=== PATIENT | male | born 1950 | race Caucasian/White ===

== ENCOUNTER → 2016-05-23 | Outpatient (CLI) | payer MEDICARE, MEDICAID ==
[~2016-05-23] MED LIST: ALPR0.5T PO; ASPI-498 OR; ATE50T OR; ATEN50TA PO; Atorvastatin Calcium PO; DIG025T OR; DIGO0.2570 PO; NITRSPR10 TL; NOR7.5T PO
== END | disposition home or self-care (01) ==
LOC: Rad HDHVI 08:56
PROVIDERS: ATTEND Internal Medicine Cardiovascular Disease
DX: I10 Essential (primary) hypertension (principal); I48.2 Chronic atrial fibrillation
CPT/HCPCS: 93306

== ENCOUNTER → 2016-06-24 | Outpatient (CLI) | payer MEDICARE, MEDICAID ==
[2016-06-24 13:03] LABS: BUN/Creatinine Ratio 7.3; Calcium 9.8 mg/dL (8.5-10.1); Potassium 4.3 mmol/L (3.5-5.1)
[2016-06-24 13:27] LABS: Temperature: 23.1 C (20.0-25.0)
== END | disposition home or self-care (01) ==
LOC: LAB 10:14
PROVIDERS: ATTEND Internal Medicine Cardiovascular Disease
DX: I10 Essential (primary) hypertension (principal); I50.9 Heart failure, unspecified; Z79.899 Other long term (current) drug therapy
CPT/HCPCS: 36415; 80048; 83880

== ENCOUNTER 2019-06-26 16:22 | Inpatient (IN) | payer MEDICAID, MEDICARE ==
[~2019-06-26] VITALS: Ht 170.2 cm; Wt 86.1 kg
[~2019-06-26 16:22] MED LIST changes: +NITR1SPR TL; -NITRSPR10 TL
[2019-06-26] MEDS ORDERED: SODIUM CHLORIDE 0.9% 1,000 ML IV ONE (16:57)
[2019-06-26] MEDS ORDERED: dilTIAZem 25 MG/5 ML VIAL IV ONE (17:00)
[2019-06-26] MEDS ORDERED: MORPHINE SULFATE 4 MG/ML SYR/VIAL IV PRN (17:00)
[2019-06-26] MEDS: MORPHINE SULF INJ 2 MG/ML SYRINGE 1ML IV PRN ×2 (17:38→21:38)
[2019-06-26 17:48] LABS: Basophils # (auto) 0.1 10 ^3/uL (0-0.2); Basophils % (auto) 0.8 % (0.0-2.0); Eosinophils # (auto) 0.1 10 ^3/uL (0-0.8); Eosinophils % (auto) 1.7 % (0.0-7.0); Lymphocytes # (auto) 2.7 10 ^3/uL (0.4-5.4); Lymphocytes % (auto) 31.6 % (10.0-50.0); Mean Corpuscular Hemoglobin 31.5 pg (28.0-32.0); Mean Corpuscular Hgb Conc. 33.3 g/dL (32.0-36.0); Mean Corpuscular Volume 94.7 fL (80.0-100.0); Monocytes # (auto) 0.8 10 ^3/uL (0-1.3); Monocytes % (auto) 9.1 % (0.0-12.0); Neutrophils # (auto) 4.8 10 ^3/uL (1.6-8.6); Neutrophils % (auto) 56.8 % (37.0-80.0); Nucleated Red Blood Cells % 0.2 %; Platelet Count (auto) 223 10^3/uL (140-450); Red Blood Cells 4.75 10^6/uL (4.5-5.90); Red Cell Distribution Width 13.5 % (11.8-14.3); White Blood Cell 8.5 10^3/uL (4.4-10.8)
[2019-06-26 17:58] LABS: Alanine Aminotransferase 23 U/L (16-61); Albumin 3.5 g/dL (3.4-5.0); Anion Gap 8 (5-15); Aspartate Aminotransferase 16 U/L (15-37); BUN/Creatinine Ratio 15.1; Blood Urea Nitrogen 18 mg/dL (7-18); Calcium 8.7 mg/dL (8.5-10.1); Carbon Dioxide 21 mmol/L (21-32); Chloride 110 mmol/L (98-107); GFR African American 78 mL/min; GFR Non-African American 65 mL/min; Glucose 98 mg/dL (74-106); Potassium 3.3 mmol/L (3.5-5.1); Sodium 139 mmol/L (136-145)
[2019-06-26 18:03] LABS: Alkaline Phosphatase 73 U/L (45-117); Bilirubin, Total 0.3 mg/dL (0.2-1.0)
[2019-06-26 18:12] LABS: INR 1.02 (0.9-1.15); Partial Thromboplastin Time 27.3 sec (23.64-32.05)
[2019-06-26] MEDS ORDERED: POTASSIUM EFFERVESENT TAB 25 MEQ PO ONE (18:45)
[2019-06-26] MEDS ORDERED: TEMAZEPAM 15 MG CAP PO PRN (19:15)
[2019-06-26] MEDS ORDERED: NITROGLYCERIN 0.4 MG SL TAB SL PRN (19:15)
[2019-06-26] MEDS ORDERED: ACETAMINOPHEN 500 MG TAB PO PRN (19:15)
[2019-06-26] MEDS ORDERED: METOPROLOL TARTRATE 25 MG TAB PO ONE (19:15)
[2019-06-26] MEDS ORDERED: ALBUTEROL SULF 2.5 MG/0.5ML(0.5%) NEB SOLN NEB PRN (19:15)
[2019-06-26] MEDS ORDERED: MORPHINE SULF INJ 2 MG/ML SYRINGE 1ML IV PRN (19:15)
[2019-06-26] MEDS ORDERED: traMADol HCL 50 MG TAB PO PRN (19:15)
[2019-06-26] MEDS ORDERED: LACTULOSE 20Gm/30ML SOLN PO PRN ×2 (19:15)
[2019-06-26] MEDS ORDERED: PROMETHAZINE HCL 25 MG/ML 1ML IV PRN (19:15)
--- NOTE | 2019-06-26 20:00 | NUR ---
Telemetry admit from SADIQ JERNIGAN Justo admitted to Telemetry unit after SBAR received. Patient oriented to Charley Stevens RN primary RN, unit, room, bed, and unit policies regarding patient care and visiting hours. Patient now on continuous telemetry monitoring, tele box # 54. Patient placed on bedside oxygen at 2 liters, weighed by bedscale and encouraged to call if they need something. All questions and concerns addressed, patient verbalized understanding. Bed is in lowest locked position with bed rails up x2 and call light is within reach of the patient.
[2019-06-26] MEDS ORDERED: FLUT1INH6 IN (21:06)
[2019-06-26] MEDS ORDERED: DIGO0.12 PO (21:06)
[2019-06-26] MEDS ORDERED: RIV20T PO (21:06)
[2019-06-26] MEDS ORDERED: OMEG100078 PO (21:10)
[2019-06-26] MEDS ORDERED: FURO40TA4 PO (21:10)
[2019-06-26] MEDS ORDERED: DILT60TA27 PO (21:10)
[2019-06-26] MEDS ORDERED: DILT240C49 PO (21:10)
[2019-06-26] MEDS ORDERED: HYDR50TA69 PO (21:10)
[2019-06-26] MEDS ORDERED: POTACAP PO (21:10)
[2019-06-26] MEDS ORDERED: HYDR-3682 PO (21:10)
[2019-06-26] MEDS ORDERED: MULTCAP45 PO (21:10)
[2019-06-26 21:36] VITALS: BP 121/76
[2019-06-26] MEDS: METOPROLOL TARTRATE 25 MG TAB PO SCH (21:39)
[2019-06-26] MEDS: ENOXAPARIN SOD 80 MG/0.8ML SYRINGE SC SCH (21:48)
[2019-06-26 22:00] VITALS: BP 130/80
[2019-06-27] MEDS: ALBUTEROL SULF 2.5 MG/0.5ML(0.5%) NEB SOLN NEB SCH ×4 (00:50→19:06)
[2019-06-27] MEDS: IPRATROPIUM BROM 0.5 MG/2.5ML INH SOL NEB SCH ×4 (00:50→19:06)
[2019-06-27] MEDS: MORPHINE SULF INJ 2 MG/ML SYRINGE 1ML IV PRN ×5 (01:39→19:56)
[2019-06-27 04:38] LABS: Amphetamine Screen, Urine NEGATIVE (NEGATIVE); Barbiturate Scree,Urine NEGATIVE (NEGATIVE); Benzodiazephine Screen, Urine NEGATIVE (NEGATIVE); Cannabinoid Screen, Urine NEGATIVE (NEGATIVE); Cocaine Screen, Urine NEGATIVE (NEGATIVE); Opiate Scree,Urine POSITIVE (NEGATIVE); Phencyclidine Screen, Urine NEGATIVE (NEGATIVE)
[2019-06-27 04:59] VITALS: BP 117/78
--- NOTE | 2019-06-27 06:15 | NUR ---
EKG obtained and placed in chart. Patient tolerated well.
[2019-06-27 08:22] VITALS: BP 116/72
[2019-06-27 08:46] VITALS: BP 116/72
[2019-06-27] MEDS: ASPirin 81 mg TAB PO SCH (09:05)
[2019-06-27] MEDS: METOPROLOL TARTRATE 25 MG TAB PO SCH (09:05)
[2019-06-27] MEDS: ENOXAPARIN SOD 80 MG/0.8ML SYRINGE SC SCH (09:06)
[2019-06-27] MEDS: NITROGLYCERIN 0.2MG/HR TOPICAL PATCH TD SCH (09:12)
[2019-06-27 12:34] VITALS: BP 121/71
[2019-06-27] MEDS ORDERED: DIGOXIN 0.125 MG TAB PO ONE (12:45)
[2019-06-27] MEDS ORDERED: FUROSEMIDE 40 MG/4 ML VIAL IV ONE (12:45)
[2019-06-27 13:08] LABS: Cholesterol 164 mg/dL (< 200)
[2019-06-27 13:11] LABS: HDL Cholesterol 61 mg/dL (40-59); LDL Cholesterol 90 mg/dL (< 100); Triglycerides 88 mg/dL (< 150)
[2019-06-27] MEDS: METOPROLOL TARTRATE 25 MG TAB PO ONE ×2 (14:45→15:12)
[2019-06-27] MEDS ORDERED: METOPROLOL TARTRATE 1MG/1ML-5ML VIAL IV SCH (14:45)
[2019-06-27] MEDS ORDERED: FURO40TA4 PO (15:03)
[2019-06-27] MEDS ORDERED: DILT240C49 PO (15:03)
[2019-06-27] MEDS ORDERED: DILT-29 PO (15:03)
[2019-06-27] MEDS ORDERED: FLUT100I IN (15:03)
[2019-06-27 17:18] VITALS: BP 119/79
[2019-06-27] MEDS: FUROSEMIDE 100 MG/10ML VIAL IV SCH (17:35)
[2019-06-27] MEDS: RIVAROXABAN 20 MG TAB PO SCH (17:38)
[2019-06-27] MEDS ORDERED: FUROSEMIDE 40 MG/4 ML VIAL IV SCH (18:00)
--- NOTE | 2019-06-27 19:11 | NUR ---
Respiratory note: AT BEDSIDE FOR MED HANNAH ARCE.
--- NOTE | 2019-06-27 19:13 | NUR ---
Respiratory note: DURING TX, PT STATES HE IS HAVING A HARD TIME BREATHING. PT STATES THE MOISTURE OF THESE TREATMENTS DO NOT HELP WITH HIS CHF AND BELIEVES THAT IS WHY HE HAS A HARD TIME BREATHING WITH TREATMENT. PT ALSO STATES HE IS NOT SURE HE WILL TAKE THE NEXT TREATMENT. EXPLAINED TO PT BENEFITS OF TX PT STILL REFUSING. RT NAME AND PAGER ASSIGNMENT WRITTEN ON PTS ROOM BOARD. WILL CONTINUE TO MONITOR. Addendum: 06/27/19 at 2001 by Drea Best, RT TX WAS STOPPED DUE TO PTS COMPLAINTS.
--- NOTE | 2019-06-27 19:45 | NUR ---
Opening Shift Note Assumed care of patient, awake and alert oriented x4. No S/S of distress/SOB noted. Instructed on POC and to call for assist PRN. Bed is in lowest locked position with bed rails up x2 and call light is within reach of the patient. Seizure precautions in place, bed rails padded. Instructed that patient will be NPO after midnight for procedures. Patient verbalized understanding.
[2019-06-27 22:00] VITALS: BP 120/85
[2019-06-27] MEDS: METOPROLOL TARTRATE 50 MG TAB PO SCH (22:01)
[2019-06-27] MEDS: POTASSIUM CHL 20 Meq TABLET PO SCH (22:01)
[2019-06-27] MEDS: ATORVASTATIN 20 MG TAB PO SCH (22:03)
--- NOTE | 2019-06-27 23:00 | NUR ---
Hospitalist paged: Patient had complaints of generalized itching all over and is requesting something for the itching. Paged hospitalist at this time for patients itching. Waiting for call back.
[2019-06-28] VITALS (7 sets, daily range): BP systolic 102–117; BP diastolic 63–76
--- NOTE | 2019-06-28 | NUR ---
Patient NPO, Itching resolved: Patient verbalized "The itching went away now." Patient no longer has generalized itching, patient now NPO for procedure in the AM.
[2019-06-28] MEDS: MORPHINE SULF INJ 2 MG/ML SYRINGE 1ML IV PRN ×5 (00:01→20:33)
--- NOTE | 2019-06-28 00:22 | NUR ---
Respiratory note: PT REFUSING MED NEB TX AT THIS TIME.
[2019-06-28] MEDS: FUROSEMIDE 100 MG/10ML VIAL IV SCH ×2 (05:43→17:29)
--- NOTE | 2019-06-28 06:15 | NUR ---
IV insertion IV access obtained, via clean sterile technique by inserting 20 gauge catheter at right forearm. IV secured properly. No trauma to site. Patient tolerated well. No S/S of distress SOB noted. Both IV's flushed and are patent for procedure.
[2019-06-28] MEDS: IPRATROPIUM BROM 0.5 MG/2.5ML INH SOL NEB SCH ×4 (06:40→18:00)
[2019-06-28] MEDS: ALBUTEROL SULF 2.5 MG/0.5ML(0.5%) NEB SOLN NEB SCH ×4 (06:40→18:00)
[2019-06-28] MEDS ORDERED: ADENOSINE 71 MG in GIVE UN-DILUTED 0 ML IV STA (08:22)
[2019-06-28] MEDS: NITROGLYCERIN 0.2MG/HR TOPICAL PATCH TD SCH (10:00)
[2019-06-28] MEDS: ASPirin 81 mg TAB PO SCH (10:35)
[2019-06-28] MEDS: POTASSIUM CHL 20 Meq TABLET PO SCH ×2 (10:39→22:05)
[2019-06-28] MEDS: dilTIAZem 120MG ER CAP PO SCH (10:39)
[2019-06-28] MEDS: METOPROLOL TARTRATE 50 MG TAB PO SCH ×2 (10:40→22:05)
[2019-06-28] MEDS: DIGOXIN 0.125 MG TAB PO SCH (10:40)
--- NOTE | 2019-06-28 10:56 | NUR ---
FYI-patient was previously on service with [facility].
--- NOTE | 2019-06-28 12:00 | NUR ---
Respiratory note: SCHEDULED MED NEB TX NOT GIVEN DUE TO PATIENT REFUSAL. PT STATED THE BREATHING TX CAUSES HIM TO COUGH FOR TWO HOURS STRAIGHT AND WANTS TO WAIT UNTIL MD COMES IN TO SEE HIM. EXPLAINED TO PT BENEFITS OF TAKING MED, PT CONTINUED TO REFUSE. NO S/S OF RESPIRATORY DISTRESS.
[2019-06-28] MEDS: GABAPENTIN 300 MG CAP PO SCH ×2 (14:30→22:05)
--- NOTE | 2019-06-28 16:50 | NUR ---
assessment re: ss consult unable to afford medications Patient is a 69 year old male who is alert and oriented. Patients cognitive abilities are intact. Prior to admission patient lived home alone and functioned independently. Patient informed me he is able to care for his own ADLs. Per patient he will return home to his prior living arrangements post discharge and family will transport him home. Patient informed me he has a cane for home use. Patient informed me he is on service with [employer]. Patient will need a resumption order on discharge. Patient also informed me one of his medications copay is 400.00 per month. I informed patient to speak with the MD regarding changing the one medicare to generic, then patient said he would be able to afford all his meds. Dulce Chapa to see patient regarding PCP. Patient only see's his Analytics Manager Dr Harmon. I informed patient he has a right to speak to a high school social studies tutor regarding all care. I informed patient he has a right to participate in any and all discharge planning. Patient does not have a POA and advanced directive. I have offered patient information on POA and advanced directives. I informed the patient the advantages and benefits of having an Advanced Directive. Patient verbalized understanding and agreed to discharge plan. Addendum: 06/28/19 at 1655 by Dulce BENAVIDES Amended: Links added.
[2019-06-28] MEDS: RIVAROXABAN 20 MG TAB PO SCH (17:30)
--- NOTE | 2019-06-28 19:47 | NUR ---
Opening Shift Note Assumed care of patient after receiving report from becca Qiu RN. Introduced self to patient, awake and alert, resting in bed comfortably. No S/S of distress/SOB or pain. Bed in lowest position x2 side rails up. Instructed on POC and to call for assist PRN, will continue to monitor for changes Q1hr and PRN.
--- NOTE | 2019-06-28 21:14 | NUR ---
IV removal Right forearm IV DC'd with clean sterile technique, catheter fully intact. Pressure dressing applied to site. Patient tolerated well.
[2019-06-28] MEDS: ATORVASTATIN 20 MG TAB PO SCH (22:06)
--- NOTE | 2019-06-28 22:15 | NUR ---
RT paged Patient complains of SOB with audible expiratory wheezing. Placed on 2L through NC, paged RT for PRN breathing treatment. Will continue to monitor.
[2019-06-29] VITALS (7 sets, daily range): BP systolic 104–117; BP diastolic 58–91
[2019-06-29] MEDS: ALBUTEROL SULF 2.5 MG/0.5ML(0.5%) NEB SOLN NEB SCH ×4 (00:41→19:25)
[2019-06-29] MEDS: IPRATROPIUM BROM 0.5 MG/2.5ML INH SOL NEB SCH ×4 (00:41→19:25)
[2019-06-29] MEDS: MORPHINE SULF INJ 2 MG/ML SYRINGE 1ML IV PRN ×5 (00:43→19:47)
[2019-06-29] MEDS: GABAPENTIN 300 MG CAP PO SCH ×3 (05:34→21:40)
[2019-06-29] MEDS: FUROSEMIDE 100 MG/10ML VIAL IV SCH ×2 (05:35→18:58)
[2019-06-29] MEDS ORDERED: IOHEXOL 350 MG/ML 100ML IJ ONE (08:09)
[2019-06-29] MEDS: METOPROLOL TARTRATE 50 MG TAB PO SCH ×2 (08:15→21:46)
[2019-06-29] MEDS: NITROGLYCERIN 0.2MG/HR TOPICAL PATCH TD SCH (08:16)
[2019-06-29] MEDS: ASPirin 81 mg TAB PO SCH (09:27)
[2019-06-29] MEDS: POTASSIUM CHL 20 Meq TABLET PO SCH ×2 (09:28→21:39)
[2019-06-29] MEDS: dilTIAZem 120MG ER CAP PO SCH (09:28)
[2019-06-29] MEDS: DIGOXIN 0.125 MG TAB PO SCH (09:29)
--- NOTE | 2019-06-29 19:08 | NUR ---
Opening Shift Note Assumed care of patient after receiving report from day RNLazarus. Patient awake and alert, sitting up in bed. No S/S of distress/SOB or pain. Instructed on POC and to call for assist PRN, will continue to monitor for changes Q1hr and PRN.
[2019-06-29] MEDS: ATORVASTATIN 20 MG TAB PO SCH (21:40)
--- NOTE | 2019-06-29 23:11 | NUR ---
Patient complains of SOB Patient stated he was having SOB, patient was sat up in bed with HOB in high fowlers, placed on 2L oxygen by CT. Patient is saturating at 97%. Patient is scheduled for [facility], spoke with RT. Will continue to monitor.
[2019-06-30] VITALS (7 sets, daily range): BP systolic 96–113; BP diastolic 63–74
[2019-06-30] MEDS: IPRATROPIUM BROM 0.5 MG/2.5ML INH SOL NEB SCH ×4 (00:16→19:20)
[2019-06-30] MEDS: ALBUTEROL SULF 2.5 MG/0.5ML(0.5%) NEB SOLN NEB SCH ×4 (00:16→19:20)
[2019-06-30] MEDS: MORPHINE SULF INJ 2 MG/ML SYRINGE 1ML IV PRN ×2 (04:17→20:12)
[2019-06-30] MEDS: FUROSEMIDE 100 MG/10ML VIAL IV SCH ×2 (05:43→17:55)
[2019-06-30] MEDS: GABAPENTIN 300 MG CAP PO SCH ×3 (05:43→21:41)
[2019-06-30 06:12] LABS: Basophils # (auto) 0 10 ^3/uL (0-0.2); Basophils % (auto) 0.7 % (0.0-2.0); Eosinophils # (auto) 0.3 10 ^3/uL (0-0.8); Eosinophils % (auto) 3.6 % (0.0-7.0); Hematocrit 39.2 % (41.0-53.0); Hemoglobin 13.7 g/dL (13.5-17.5); Lymphocytes # (auto) 1.5 10 ^3/uL (0.4-5.4); Lymphocytes % (auto) 20.3 % (10.0-50.0); Mean Corpuscular Hemoglobin 32.8 pg (28.0-32.0); Monocytes # (auto) 0.7 10 ^3/uL (0-1.3); Monocytes % (auto) 9.9 % (0.0-12.0); Neutrophils # (auto) 4.9 10 ^3/uL (1.6-8.6); Neutrophils % (auto) 65.5 % (37.0-80.0); Platelet Count (auto) 184 10^3/uL (140-450); Red Blood Cells 4.17 10^6/uL (4.5-5.90); Red Cell Distribution Width 13.3 % (11.8-14.3); White Blood Cell 7.4 10^3/uL (4.4-10.8)
--- NOTE | 2019-06-30 06:21 | NUR ---
Linen change with partial bath Patient received partial bath, with complete linen change and clean gown. Patient tolerated well. No s/s of distress.
[2019-06-30 06:27] LABS: Albumin 3.5 g/dL (3.4-5.0); Calcium 8.6 mg/dL (8.5-10.1); INR 1.11 (0.9-1.15); Partial Thromboplastin Time 29.6 sec (23.64-32.05); Potassium 3.7 mmol/L (3.5-5.1)
[2019-06-30 06:31] LABS: BUN/Creatinine Ratio 22.3; Bilirubin, Total 0.5 mg/dL (0.2-1.0); Total Protein 6.7 g/dL (6.4-8.2)
--- NOTE | 2019-06-30 07:30 | NUR ---
CHEST PAIN I WAS NOTIFIED THAT PATIENT WAS HAVING CHEST PAIN. CHEST PAIN PROTOCOL FOLLOWED AND EKG OBTAINED. PATIENT REFUSES NITROGLYCERIN STATING "I CAN'T HANDLE THE HEADACHE IT GIVES ME FOR WEEKS" VITALS TAKEN BP 90/78, 98% ON 2L NC AND AN IRREGULAR PULSE OF 74. WILL CONTINUE TO MONITOR VERY CLOSELY.
[2019-06-30] MEDS ORDERED: LIDOCAINE 2%HCL (LOCAL ANESTH.) INJ 20ML MDV ONE (08:08)
[2019-06-30] MEDS ORDERED: IODIXANOL 320MG/ML 100ML BTL IV ONE (08:08)
--- NOTE | 2019-06-30 09:19 | NUR ---
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
[2019-06-30] MEDS ORDERED: SODIUM CHL 0.9% 0 ML ONE (09:33)
[2019-06-30] MEDS ORDERED: ANGIOMAX 250 MG VIAL IV ONE (09:33)
[2019-06-30] MEDS ORDERED: MIDAZOLAM HCL 1MG/1ML-2 ML VIAL ONE (09:33)
[2019-06-30] MEDS ORDERED: fentaNYL CITRATE 100 MCG/2 ML VL ONE (09:33)
[2019-06-30] MEDS: dilTIAZem 120MG ER CAP PO SCH (10:00)
[2019-06-30] MEDS: NITROGLYCERIN 0.2MG/HR TOPICAL PATCH TD SCH (10:00)
[2019-06-30] MEDS: ASPirin 81 mg TAB PO SCH (10:00)
[2019-06-30] MEDS: DIGOXIN 0.125 MG TAB PO SCH (10:00)
[2019-06-30] MEDS: POTASSIUM CHL 20 Meq TABLET PO SCH ×2 (10:00→21:41)
[2019-06-30] MEDS: METOPROLOL TARTRATE 50 MG TAB PO SCH ×2 (10:00→21:43)
[2019-06-30] MEDS ORDERED: diphenhdrAMINE HCL 50 MG/1 ML VL ONE (10:19)
--- NOTE | 2019-06-30 11:53 | NUR ---
PATIENT RETURN TO UNIT PATIENT BROUGHT BACK TO UNIT BY MITER CUTTER STAFF WITHOUT INCIDENT. RIGHT GROIN ASSESSED. NO BLEEDING OR BRUISING NOTED. PATIENT INSTRUCTED TO STAY FLAT UNTIL 1230, VERBALIZED UNDERSTANDING. WILL CONTINUE TO MONITOR.
--- NOTE | 2019-06-30 15:08 | NUR ---
Nutrition Assessment Notes Please refer to link for full assessment notes. Est energy needs: 7596-5289 kcals (20-23 kcal/kgBW) Est protein needs: 86-94 gms/day (1.0-1.1 gm/kgBW) Will continue to monitor and reassess prn. Addendum: 06/30/19 at [address] Amended: Links added.
[2019-06-30] MEDS ORDERED: RIVAROXABAN 20 MG TAB PO SCH (18:00)
--- NOTE | 2019-06-30 19:35 | NUR ---
Opening Shift Note Assumed care of patient, awake and alert. No S/S of distress/SOB or pain. Noted dressing on right groin dry and intact with old blood stained. Instructed on POC and to call for assist PRN, patient verbalized understanding, call light within reach, will continue to monitor for changes Q1hr and PRN.
[2019-06-30] MEDS: ATORVASTATIN 20 MG TAB PO SCH (21:42)
[2019-07-01] MEDS: MORPHINE SULF INJ 2 MG/ML SYRINGE 1ML IV PRN ×3 (00:12→10:12)
[2019-07-01] MEDS: IPRATROPIUM BROM 0.5 MG/2.5ML INH SOL NEB SCH ×3 (00:28→12:48)
[2019-07-01] MEDS: ALBUTEROL SULF 2.5 MG/0.5ML(0.5%) NEB SOLN NEB SCH ×3 (00:28→12:48)
[2019-07-01 05:00] VITALS: BP 98/64
[2019-07-01] MEDS: GABAPENTIN 300 MG CAP PO SCH (06:11)
[2019-07-01 06:47] VITALS: BP 117/74
[2019-07-01] MEDS: FUROSEMIDE 100 MG/10ML VIAL IV SCH (06:47)
[2019-07-01 09:00] VITALS: BP 110/55
[2019-07-01] MEDS: NITROGLYCERIN 0.2MG/HR TOPICAL PATCH TD SCH (10:00)
[2019-07-01] MEDS: DIGOXIN 0.125 MG TAB PO SCH (10:14)
[2019-07-01] MEDS: dilTIAZem 120MG ER CAP PO SCH (10:14)
[2019-07-01] MEDS: POTASSIUM CHL 20 Meq TABLET PO SCH (10:14)
[2019-07-01] MEDS: METOPROLOL TARTRATE 50 MG TAB PO SCH (10:15)
[2019-07-01] MEDS: ASPirin 81 mg TAB PO SCH (10:15)
[2019-07-01 12:10] VITALS: BP 110/53
[2019-07-01 12:27] VITALS: BP 92/57
[2019-07-01 12:41] VITALS: BP 92/57
--- NOTE | 2019-07-01 12:48 | NUR ---
Respiratory note: SCHEDULED MED NEB TX NOT GIVEN. PT IS DISCHARGED, DRESSED AND JUST WAITING FOR DISCHARGE PAPERS. NO RESP DISTRESS NOTED.
== END 2019-07-01 13:10 | disposition home or self-care (01) | DRG 286 ==
LOC: ER 16:23 → TELE 16:24 → TELE-WESTW 20:01
PROVIDERS: ADMIT Internal Medicine; ATTEND Family Medicine
PROC: 4A023N7 Measurement of Cardiac Sampling and Pressure, Left Heart, Percutaneous Approach (ICD-10-PCS; principal; 2019-06-30)
PROC: B2111ZZ Fluoroscopy of Multiple Coronary Arteries using Low Osmolar Contrast (ICD-10-PCS; 2019-06-30)
PROC: B2151ZZ Fluoroscopy of Left Heart using Low Osmolar Contrast (ICD-10-PCS; 2019-06-30)
PROC: B41G1ZZ Fluoroscopy of Left Lower Extremity Arteries using Low Osmolar Contrast (ICD-10-PCS; 2019-06-30)
PROC: B41F1ZZ Fluoroscopy of Right Lower Extremity Arteries using Low Osmolar Contrast (ICD-10-PCS; 2019-06-30)
DX: T82.111A Breakdown (mechanical) of cardiac pulse generator (battery), initial encounter (principal); I50.43 Acute on chronic combined systolic (congestive) and diastolic (congestive) heart failure; J44.1 Chronic obstructive pulmonary disease with (acute) exacerbation; I11.0 Hypertensive heart disease with heart failure; E87.6 Hypokalemia; E78.00 Pure hypercholesterolemia, unspecified; F17.210 Nicotine dependence, cigarettes, uncomplicated; I73.9 Peripheral vascular disease, unspecified; F41.9 Anxiety disorder, unspecified; I27.20 Pulmonary hypertension, unspecified; M79.605 Pain in left leg; Y83.8 Other surgical procedures as the cause of abnormal reaction of the patient, or of later complication, without mention of misadventure at the time of the procedure; I48.91 Unspecified atrial fibrillation; Z79.899 Other long term (current) drug therapy; Z80.3 Family history of malignant neoplasm of breast; Z80.1 Family history of malignant neoplasm of trachea, bronchus and lung; I25.2 Old myocardial infarction; Z86.73 Personal history of transient ischemic attack (TIA), and cerebral infarction without residual deficits; Z95.0 Presence of cardiac pacemaker; Z80.42 Family history of malignant neoplasm of prostate; Z80.8 Family history of malignant neoplasm of other organs or systems; Z81.8 Family history of other mental and behavioral disorders; Z82.0 Family history of epilepsy and other diseases of the nervous system; Z82.49 Family history of ischemic heart disease and other diseases of the circulatory system; Z82.5 Family history of asthma and other chronic lower respiratory diseases; Z82.62 Family history of osteoporosis; Z83.3 Family history of diabetes mellitus; Z91.14 Patient's other noncompliance with medication regimen; Y92.89 Other specified places as the place of occurrence of the external cause
CPT/HCPCS: 36415; 71046; 75716; 78452; 80053; 80061; 80162; 80307; 82550; 83735; 83880; 84443; 84484; 85025; 85379; 85610; 85652; 85730; 86141; 93005; 93017; 93306; 93458; 93926; 93971; 94640; 96361; 96374; 99152; 99153; G0378; J0153; J2250; Q9967

== ENCOUNTER 2019-10-06 07:51 | Inpatient (IN) | payer MEDICARE ==
[~2019-10-06] VITALS: Ht 182.9 cm; Wt 85.8 kg
[~2019-10-06 07:51] MED LIST changes: -ALPR0.5T PO; -ASPI-498 OR; -ATE50T OR; -ATEN50TA PO; -DIG025T OR; +DIGO0.12 PO; -DIGO0.2570 PO; +DILT1CAP77 PO; +DILT240C49 PO; +FLUT100I IN; +FLUT1INH6 IN; +FURO40TA4 PO; +HYDR-3682 PO; +HYDR50TA69 PO; +MULTCAP45 PO; -NITR1SPR TL; -NOR7.5T PO; +OMEG100078 PO; +POTACAP PO; +RIV20T PO
[2019-10-06] MEDS ORDERED: SODIUM CHLORIDE 0.9% 1,000 ML IVB ONE (08:07)
[2019-10-06] MEDS ORDERED: SODIUM CHLORIDE 0.9% 1,000 ML IV ONE (08:07)
[2019-10-06 09:07] LABS: Urine Bacteria NONE SEEN /hpf (None Seen); Urine Blood Negative /uL (Negative); Urine Specific Gravity 1.001 (1.001-1.035); Urine WBC <1 /hpf (0 - 3)
[2019-10-06 10:10] LABS: Basophils # (auto) 0.1 10 ^3/uL (0-0.2); Eosinophils # (auto) 0.3 10 ^3/uL (0-0.8); Eosinophils % (auto) 4.8 % (0.0-7.0); Hematocrit 38.5 % (41.0-53.0); Hemoglobin 13.2 g/dL (13.5-17.5); Lymphocytes # (auto) 1.8 10 ^3/uL (0.4-5.4); Lymphocytes % (auto) 30.8 % (10.0-50.0); Mean Corpuscular Hgb Conc. 34.3 g/dL (32.0-36.0); Mean Corpuscular Volume 96.1 fL (80.0-100.0); Monocytes # (auto) 0.7 10 ^3/uL (0-1.3); Monocytes % (auto) 11.4 % (0.0-12.0); Neutrophils # (auto) 3.1 10 ^3/uL (1.6-8.6); Platelet Count (auto) 199 10^3/uL (140-450); Red Blood Cells 4.01 10^6/uL (4.5-5.90); Red Cell Distribution Width 13.6 % (11.8-14.3)
[2019-10-06 10:24] LABS: Sodium 144 mmol/L (136-145)
[2019-10-06 10:34] LABS: Alanine Aminotransferase 31 U/L (16-61); Albumin 3.3 g/dL (3.4-5.0); Alkaline Phosphatase 63 U/L (45-117); Aspartate Aminotransferase 24 U/L (15-37); BUN/Creatinine Ratio 11.3; Bilirubin, Total 0.3 mg/dL (0.2-1.0); Blood Urea Nitrogen 12 mg/dL (7-18); Carbon Dioxide 25 mmol/L (21-32); GFR African American 90 mL/min; GFR Non-African American 74 mL/min; Glucose 87 mg/dL (74-106); Magnesium 2.3 mg/dL (1.6-2.6); Total Protein 6.3 g/dL (6.4-8.2)
[2019-10-06 10:35] LABS: Potassium 2.9 mmol/L (3.5-5.1)
[2019-10-06] MEDS ORDERED: POTASSIUM EFFERVESENT TAB 25 MEQ ONE (10:37)
[2019-10-06] MEDS ORDERED: POTASSIUM EFFERVESENT TAB 25 MEQ PO ONE (10:45)
[2019-10-06] MEDS ORDERED: POTA-180 PO (10:58)
[2019-10-06] MEDS ORDERED: DIGO1TAB35 PO (10:58)
[2019-10-06] MEDS ORDERED: ATOR20TA50 (10:58)
[2019-10-06 11:12] LABS: Anion Gap 5 (5-15); Chloride 114 mmol/L (98-107)
[2019-10-06] MEDS ORDERED: MORPHINE SULF INJ 2 MG/ML SYRINGE 1ML IV PRN (12:30)
[2019-10-06] MEDS ORDERED: ALBUTEROL SULF 2.5 MG/0.5ML(0.5%) NEB SOLN NEB PRN (12:30)
[2019-10-06] MEDS ORDERED: NITROGLYCERIN 0.4 MG SL TAB SL PRN (12:30)
[2019-10-06] MEDS ORDERED: ACETAMINOPHEN 500 MG TAB PO PRN (12:45)
[2019-10-06] MEDS ORDERED: ONDANSETRON HCL 4 MG/2 ML VIAL IV PRN (12:45)
[2019-10-06 12:58] VITALS: BP 109/68
[2019-10-06 13:00] VITALS: BP 112/73
[2019-10-06] MEDS ORDERED: IOHEXOL 350 MG/ML 100ML IJ ONE (14:50)
[2019-10-06 16:41] VITALS: BP 112/73
[2019-10-06] MEDS ORDERED: ATOR20TA50 PO (17:43)
[2019-10-06] MEDS ORDERED: BIOT10004 PO (17:45)
[2019-10-06] MEDS ORDERED: DILT-40 PO (17:46)
[2019-10-06] MEDS ORDERED: RIVAROXABAN 20 MG TAB PO SCH (18:00)
[2019-10-06] MEDS ORDERED: ATORVASTATIN 20 MG TAB PO SCH (22:00)
[2019-10-07 00:31] VITALS: BP 116/65
[2019-10-07 05:36] VITALS: BP 117/65
[2019-10-07 07:32] LABS: Basophils # (auto) 0.1 10 ^3/uL (0-0.2); Basophils % (auto) 1.6 % (0.0-2.0); Eosinophils # (auto) 0.3 10 ^3/uL (0-0.8); Eosinophils % (auto) 5.4 % (0.0-7.0); Hematocrit 37.8 % (41.0-53.0); Hemoglobin 13.1 g/dL (13.5-17.5); Lymphocytes # (auto) 1.9 10 ^3/uL (0.4-5.4); Lymphocytes % (auto) 32.1 % (10.0-50.0); Mean Corpuscular Hemoglobin 33.4 pg (28.0-32.0); Mean Corpuscular Hgb Conc. 34.6 g/dL (32.0-36.0); Mean Corpuscular Volume 96.4 fL (80.0-100.0); Monocytes # (auto) 0.5 10 ^3/uL (0-1.3); Neutrophils # (auto) 3.1 10 ^3/uL (1.6-8.6); Neutrophils % (auto) 51.9 % (37.0-80.0); Nucleated Red Blood Cells % 0.2 %; Platelet Count (auto) 184 10^3/uL (140-450); Red Blood Cells 3.92 10^6/uL (4.5-5.90); Red Cell Distribution Width 14.1 % (11.8-14.3); White Blood Cell 5.9 10^3/uL (4.4-10.8)
[2019-10-07 08:17] LABS: Potassium 3.3 mmol/L (3.5-5.1)
[2019-10-07 08:25] LABS: BUN/Creatinine Ratio 12.8; Calcium 8.3 mg/dL (8.5-10.1)
[2019-10-07 09:15] VITALS: BP 124/79
[2019-10-07] MEDS ORDERED: POTASSIUM CHL 20 Meq TABLET PO ONE (09:30)
[2019-10-07] MEDS ORDERED: DIGOXIN 0.125 MG TAB PO SCH (10:00)
== END 2019-10-07 10:00 | disposition home or self-care (01) | DRG 65 ==
LOC: ER 07:51 → TELE-CENTR 07:52
PROVIDERS: ADMIT Internal Medicine; ATTEND Internal Medicine
DX: I63.9 Cerebral infarction, unspecified (principal); E44.1 Mild protein-calorie malnutrition; I50.42 Chronic combined systolic (congestive) and diastolic (congestive) heart failure; D68.69 Other thrombophilia; E87.6 Hypokalemia; J44.9 Chronic obstructive pulmonary disease, unspecified; I95.9 Hypotension, unspecified; I48.91 Unspecified atrial fibrillation; E78.5 Hyperlipidemia, unspecified; F17.210 Nicotine dependence, cigarettes, uncomplicated; I11.0 Hypertensive heart disease with heart failure; I25.10 Atherosclerotic heart disease of native coronary artery without angina pectoris; F41.9 Anxiety disorder, unspecified; Z79.01 Long term (current) use of anticoagulants; Z80.0 Family history of malignant neoplasm of digestive organs; Z80.1 Family history of malignant neoplasm of trachea, bronchus and lung; Z80.3 Family history of malignant neoplasm of breast; Z80.42 Family history of malignant neoplasm of prostate; Z80.8 Family history of malignant neoplasm of other organs or systems; Z82.0 Family history of epilepsy and other diseases of the nervous system; Z82.49 Family history of ischemic heart disease and other diseases of the circulatory system; Z82.5 Family history of asthma and other chronic lower respiratory diseases; Z82.62 Family history of osteoporosis; Z83.3 Family history of diabetes mellitus; Z86.73 Personal history of transient ischemic attack (TIA), and cerebral infarction without residual deficits; Z95.0 Presence of cardiac pacemaker; Z81.8 Family history of other mental and behavioral disorders; Z68.25 Body mass index [BMI] 25.0-25.9, adult
CPT/HCPCS: 36415; 70450; 70496; 70498; 71046; 80048; 80053; 80061; 80162; 81001; 83735; 83880; 84443; 84484; 85025; 93005; 93886; G0378

== ENCOUNTER 2020-11-07 21:25 | Inpatient (IN) | payer MEDICAID, MEDICARE, OTHER ==
[~2020-11-07] VITALS: Ht 177.8 cm; Wt 91.3 kg
[~2020-11-07 21:25] MED LIST changes: +ATOR20TA50 PO; -Atorvastatin Calcium PO; +BIOT10004 PO; -DIGO0.12 PO; +DIGO1TAB35 PO; +DILT-40 PO; -DILT1CAP77 PO; -DILT240C49 PO; -FLUT100I IN; -HYDR50TA69 PO; +POTA-180 PO
[2020-11-07 22:56] LABS: Basophils # (auto) 0 10 ^3/uL (0-0.2); Basophils % (auto) 0.9 % (0.0-2.0); Eosinophils # (auto) 0.1 10 ^3/uL (0-0.8); Eosinophils % (auto) 2.6 % (0.0-7.0); Hematocrit 38.6 % (41.0-53.0); Hemoglobin 13.5 g/dL (13.5-17.5); Lymphocytes # (auto) 1.6 10 ^3/uL (0.4-5.4); Lymphocytes % (auto) 30.9 % (10.0-50.0); Mean Corpuscular Hemoglobin 33.3 pg (28.0-32.0); Mean Corpuscular Hgb Conc. 34.9 g/dL (32.0-36.0); Mean Corpuscular Volume 95.3 fL (80.0-100.0); Monocytes # (auto) 0.4 10 ^3/uL (0-1.3); Neutrophils # (auto) 2.9 10 ^3/uL (1.6-8.6); Neutrophils % (auto) 57.6 % (37.0-80.0); Nucleated Red Blood Cells % 0.1 %; Red Blood Cells 4.05 10^6/uL (4.5-5.90); Red Cell Distribution Width 14.1 % (11.8-14.3); White Blood Cell 5.1 10^3/uL (4.4-10.8)
[2020-11-07] MEDS ORDERED: ONDANSETRON HCL 4 MG/2 ML VIAL IV ONE (23:00)
[2020-11-07] MEDS ORDERED: MORPHINE SULF INJ 2 MG/ML SYRINGE 1ML IV ONE (23:00)
[2020-11-07 23:16] LABS: Albumin 3.3 g/dL (3.4-5.0); Anion Gap 9 (5-15); Blood Urea Nitrogen 12 mg/dL (7-18); Calcium 8.5 mg/dL (8.5-10.1); Carbon Dioxide 25 mmol/L (21-32); Chloride 104 mmol/L (98-107); Glucose 100 mg/dL (74-106); Magnesium 2.3 mg/dL (1.6-2.6); Sodium 138 mmol/L (136-145)
[2020-11-07 23:26] LABS: Alanine Aminotransferase 34 U/L (16-61); Alkaline Phosphatase 72 U/L (45-117); Aspartate Aminotransferase 24 U/L (15-37); BUN/Creatinine Ratio 11.3; Bilirubin, Total 0.8 mg/dL (0.2-1.0); GFR African American 89 mL/min; GFR Non-African American 74 mL/min; Total Protein 6.5 g/dL (6.4-8.2)
[2020-11-07 23:41] LABS: INR 1.05 (0.9-1.15)
[2020-11-07 23:41] LABS: Potassium 2.6 mmol/L (3.5-5.1)
[2020-11-07] MEDS ORDERED: POTASSIUM CHL 20MEQ/100ML 100 ML IV STA (23:43)
[2020-11-07] MEDS ORDERED: POTASSIUM EFFERVESENT TAB 25 MEQ PO ONE (23:45)
[2020-11-08] VITALS (7 sets, daily range): BP systolic 83–138; BP diastolic 51–86
[2020-11-08] MEDS ORDERED: ACETAMINOPHEN 325 MG TAB PO PRN (00:45)
[2020-11-08] MEDS ORDERED: SODIUM CHLORIDE 0.9% 1,000 ML IV SCH (00:45)
[2020-11-08] MEDS ORDERED: ONDANSETRON HCL 4 MG/2 ML VIAL IV PRN (00:45)
[2020-11-08] MEDS ORDERED: METOPROLOL TARTRATE 1MG/1ML-5ML VIAL IV ONE (00:45)
[2020-11-08] MEDS ORDERED: ZOLPIDEM TARTRATE 5 MG TAB PO PRN (00:45)
[2020-11-08] MEDS ORDERED: NITROGLYCERIN 0.4 MG SL TAB SL PRN (00:45)
[2020-11-08] MEDS ORDERED: LORazepam 0.5 MG TAB PO PRN (00:45)
[2020-11-08] MEDS: MORPHINE SULF INJ 2 MG/ML SYRINGE 1ML IV PRN ×5 (02:58→22:04)
[2020-11-08 05:47] LABS: Basophils # (auto) 0.1 10 ^3/uL (0-0.2); Basophils % (auto) 1.4 % (0.0-2.0); Eosinophils # (auto) 0.2 10 ^3/uL (0-0.8); Eosinophils % (auto) 3.9 % (0.0-7.0); Hematocrit 39.5 % (41.0-53.0); Hemoglobin 13.9 g/dL (13.5-17.5); Lymphocytes # (auto) 1.9 10 ^3/uL (0.4-5.4); Lymphocytes % (auto) 37.6 % (10.0-50.0); Mean Corpuscular Hemoglobin 33.8 pg (28.0-32.0); Mean Corpuscular Hgb Conc. 35.3 g/dL (32.0-36.0); Mean Corpuscular Volume 95.6 fL (80.0-100.0); Monocytes # (auto) 0.5 10 ^3/uL (0-1.3); Monocytes % (auto) 10.3 % (0.0-12.0); Neutrophils # (auto) 2.3 10 ^3/uL (1.6-8.6); Neutrophils % (auto) 46.8 % (37.0-80.0); Nucleated Red Blood Cells % 0.1 %; Red Blood Cells 4.13 10^6/uL (4.5-5.90); White Blood Cell 4.9 10^3/uL (4.4-10.8)
[2020-11-08 06:26] LABS: Chloride 108 mmol/L (98-107); Potassium 3.8 mmol/L (3.5-5.1); Sodium 141 mmol/L (136-145)
[2020-11-08 06:48] LABS: Anion Gap 6 (5-15); BUN/Creatinine Ratio 11.7; Blood Urea Nitrogen 13 mg/dL (7-18); Calcium 8.7 mg/dL (8.5-10.1); Carbon Dioxide 27 mmol/L (21-32); Cholesterol 144 mg/dL (< 200); GFR African American 85 mL/min; GFR Non-African American 70 mL/min; Glucose 80 mg/dL (74-106); HDL Cholesterol 53 mg/dL (40-59); LDL Cholesterol 78 mg/dL (< 100); Triglycerides 120 mg/dL (< 150)
[2020-11-08] MEDS: DOCUSATE SOD 100 MG CAP PO SCH (09:00)
[2020-11-08] MEDS: POTASSIUM CHL 20 Meq TABLET PO SCH (09:01)
[2020-11-08] MEDS: ASPirin 325 MG TAB PO SCH (09:01)
[2020-11-08] MEDS: DIGOXIN 0.125 MG TAB PO SCH (09:01)
[2020-11-08] MEDS: dilTIAZem HCL 180MG ER CAP PO SCH (09:01)
[2020-11-08] MEDS ORDERED: LISINOPRIL 5 MG TAB PO SCH (10:00)
[2020-11-08] MEDS ORDERED: FUROSEMIDE 40 MG TAB PO SCH (10:00)
[2020-11-08] MEDS ORDERED: METOPROLOL TARTRATE 25 MG TAB PO SCH (10:00)
[2020-11-08] MEDS ORDERED: FUROSEMIDE 20 MG/2 ML VIAL IV ONE (11:30)
[2020-11-08 12:38] LABS: Anion Gap 4 (5-15); BUN/Creatinine Ratio 16.8; Blood Urea Nitrogen 18 mg/dL (7-18); Calcium 8.7 mg/dL (8.5-10.1); Carbon Dioxide 27 mmol/L (21-32); Chloride 110 mmol/L (98-107); GFR African American 88 mL/min; GFR Non-African American 73 mL/min; Glucose 82 mg/dL (74-106); Potassium 4.2 mmol/L (3.5-5.1); Sodium 141 mmol/L (136-145)
[2020-11-08 12:44] LABS: Folate (Folic Acid) > 24.00 ng/mL (5.38-24); Free T4 (Free Thyroxine) 1.24 ng/dL (0.89-1.76)
[2020-11-08 12:58] LABS: Urine Bacteria NONE SEEN /hpf (None Seen); Urine Blood Negative /uL (Negative); Urine Specific Gravity 1.007 (1.001-1.035); Urine WBC <1 /hpf (0 - 3)
[2020-11-08 13:13] LABS: Amphetamine Screen, Urine NEGATIVE (NEGATIVE); Barbiturate Scree,Urine NEGATIVE (NEGATIVE); Benzodiazephine Screen, Urine NEGATIVE (NEGATIVE); Cannabinoid Screen, Urine NEGATIVE (NEGATIVE); Cocaine Screen, Urine NEGATIVE (NEGATIVE); Opiate Scree,Urine NEGATIVE (NEGATIVE); Phencyclidine Screen, Urine NEGATIVE (NEGATIVE)
[2020-11-08] MEDS ORDERED: SODIUM CHLORIDE 0.9% 500 ML IV ONE (17:30)
[2020-11-08] MEDS ORDERED: ATORVASTATIN 20 MG TAB PO SCH (22:00)
[2020-11-09 05:00] VITALS: BP 106/64
[2020-11-09] MEDS: MORPHINE SULF INJ 2 MG/ML SYRINGE 1ML IV PRN (05:57)
[2020-11-09] MEDS: POTASSIUM CHL 20 Meq TABLET PO SCH (09:07)
[2020-11-09] MEDS: ASPirin 325 MG TAB PO SCH (09:07)
[2020-11-09] MEDS: dilTIAZem HCL 180MG ER CAP PO SCH (09:08)
[2020-11-09] MEDS: DIGOXIN 0.125 MG TAB PO SCH (09:10)
[2020-11-09] MEDS: DOCUSATE SOD 100 MG CAP PO SCH (09:11)
[2020-11-09 09:13] VITALS: BP 122/71
[2020-11-09] MEDS ORDERED: FUROSEMIDE 20 MG/2 ML VIAL IV SCH (10:00)
[2020-11-09] MEDS ORDERED: FURO40TA4 PO (11:23)
[2020-11-09] MEDS ORDERED: POTA-180 PO (11:23)
[2020-11-09] MEDS ORDERED: RIV20T PO (11:23)
[2020-11-09] MEDS ORDERED: DILT-40 PO (11:23)
[2020-11-09] MEDS ORDERED: FLUT1INH6 IN (11:23)
[2020-11-09] MEDS ORDERED: SACU1TAB PO (11:23)
[2020-11-09] MEDS ORDERED: ATOR20TA50 PO (11:23)
[2020-11-09] MEDS ORDERED: DIGO1TAB35 PO (11:23)
[2020-11-09] MEDS ORDERED: DILT-29 PO (11:25)
== END 2020-11-09 13:20 | disposition home or self-care (01) | DRG 293 ==
LOC: EDBD 21:25 → ER 21:28 → TELE 11-08 00:41 → TELE-CENTR 11-08 03:10
PROVIDERS: ADMIT Hospitalist; ATTEND Internal Medicine
DX: I11.0 Hypertensive heart disease with heart failure (principal); I48.91 Unspecified atrial fibrillation; I50.43 Acute on chronic combined systolic (congestive) and diastolic (congestive) heart failure; E87.6 Hypokalemia; Z91.14 Patient's other noncompliance with medication regimen; E78.5 Hyperlipidemia, unspecified; F17.210 Nicotine dependence, cigarettes, uncomplicated; F41.9 Anxiety disorder, unspecified; Z20.822 Contact with and (suspected) exposure to COVID-19; J44.9 Chronic obstructive pulmonary disease, unspecified; N28.1 Cyst of kidney, acquired; Z80.1 Family history of malignant neoplasm of trachea, bronchus and lung; Z80.3 Family history of malignant neoplasm of breast; Z80.42 Family history of malignant neoplasm of prostate; Z80.8 Family history of malignant neoplasm of other organs or systems; Z81.8 Family history of other mental and behavioral disorders; Z82.0 Family history of epilepsy and other diseases of the nervous system; Z82.49 Family history of ischemic heart disease and other diseases of the circulatory system; Z82.5 Family history of asthma and other chronic lower respiratory diseases; Z82.62 Family history of osteoporosis; Z83.3 Family history of diabetes mellitus; Z86.73 Personal history of transient ischemic attack (TIA), and cerebral infarction without residual deficits; Z98.61 Coronary angioplasty status; Z71.6 Tobacco abuse counseling
CPT/HCPCS: 36415; 36600; 71045; 71250; 72125; 76775; 80048; 80053; 80061; 80307; 81001; 82306; 82607; 82746; 82805; 83735; 83880; 84439; 84443; 84484; 85025; 85379; 85610; 87426; 93005; 93306; 96365; 96366; 96375; G0378; J2405; J3480

== ENCOUNTER 2021-01-07 16:20 | Inpatient (IN) | payer MEDICAID, MEDICARE, OTHER ==
[~2021-01-07] VITALS: Ht 188 cm; Wt 74.4 kg
[~2021-01-07 16:20] MED LIST changes: -BIOT10004 PO; +DILT-29 PO; -HYDR-3682 PO; -MULTCAP45 PO; -OMEG100078 PO; -POTACAP PO; +SACU1TAB PO
[2021-01-07] MEDS ORDERED: AMIODARONE HCL 150 MG in D5W 5% 100 ML IV ONE (17:00)
[2021-01-07 17:11] LABS: Basophils # (auto) 0.1 10 ^3/uL (0-0.2); Basophils % (auto) 0.8 % (0.0-2.0); Eosinophils # (auto) 0.1 10 ^3/uL (0-0.8); Eosinophils % (auto) 1.8 % (0.0-7.0); Hematocrit 43.4 % (41.0-53.0); Hemoglobin 14.6 g/dL (13.5-17.5); Lymphocytes # (auto) 1.8 10 ^3/uL (0.4-5.4); Lymphocytes % (auto) 28.2 % (10.0-50.0); Mean Corpuscular Hgb Conc. 33.6 g/dL (32.0-36.0); Mean Corpuscular Volume 98.1 fL (80.0-100.0); Monocytes # (auto) 0.6 10 ^3/uL (0-1.3); Monocytes % (auto) 9.6 % (0.0-12.0); Neutrophils # (auto) 3.9 10 ^3/uL (1.6-8.6); Neutrophils % (auto) 59.6 % (37.0-80.0); Red Blood Cells 4.43 10^6/uL (4.5-5.90); Red Cell Distribution Width 14.2 % (11.8-14.3); White Blood Cell 6.5 10^3/uL (4.4-10.8)
[2021-01-07 17:15] LABS: Albumin 3.3 g/dL (3.4-5.0); Anion Gap 6 (5-15); Blood Urea Nitrogen 15 mg/dL (7-18); Calcium 8.7 mg/dL (8.5-10.1); Carbon Dioxide 25 mmol/L (21-32); Chloride 111 mmol/L (98-107); Glucose 120 mg/dL (74-106); Potassium 3.8 mmol/L (3.5-5.1); Sodium 142 mmol/L (136-145)
[2021-01-07] MEDS ORDERED: AMIODARONE 450mg/250ml AE 250 ML IV SCH ×2 (17:15→23:15)
[2021-01-07 17:20] LABS: Alanine Aminotransferase 44 U/L (16-61); Alkaline Phosphatase 72 U/L (45-117); Aspartate Aminotransferase 22 U/L (15-37); BUN/Creatinine Ratio 14.7; Bilirubin, Total 0.7 mg/dL (0.2-1.0); GFR African American 93 mL/min; GFR Non-African American 77 mL/min; Total Protein 6.2 g/dL (6.4-8.2)
[2021-01-07 17:24] LABS: Magnesium 2.4 mg/dL (1.6-2.6)
[2021-01-07] MEDS ORDERED: MORPHINE SULFATE INJECTION 2 MG/ML SYRG IV PRN (18:30)
[2021-01-07] MEDS ORDERED: NITROGLYCERIN 0.4 MG SL TAB SL PRN (18:30)
[2021-01-07] MEDS ORDERED: TEMAZEPAM 15 MG CAP PO PRN (18:45)
[2021-01-07] MEDS ORDERED: ACETAMINOPHEN 500 MG TAB PO PRN (18:45)
[2021-01-07] MEDS ORDERED: LACTULOSE 20Gm/30ML SOLN PO PRN (18:45)
[2021-01-07] MEDS ORDERED: ONDANSETRON HCL 4 MG/2 ML VIAL IV PRN (18:45)
[2021-01-07] MEDS ORDERED: traMADol HCL 50 MG TAB PO PRN (18:45)
[2021-01-07] MEDS: ENOXAPARIN SOD 80 MG/0.8ML SYRINGE SC SCH (22:00)
[2021-01-07] MEDS ORDERED: ATORVASTATIN 20 MG TAB PO SCH (22:00)
[2021-01-07] MEDS: CARVEDILOL 3.125 MG TAB PO SCH (23:21)
[2021-01-08 01:14] LABS: Urine Bacteria FEW /hpf (None Seen); Urine Blood Negative /uL (Negative); Urine Specific Gravity 1.011 (1.001-1.035); Urine WBC <1 /hpf (0 - 3)
[2021-01-08 01:30] LABS: Alcohol, Urine < 3.0 mg/dL (0-10); Amphetamine Screen, Urine NEGATIVE (NEGATIVE); Barbiturate Scree,Urine NEGATIVE (NEGATIVE); Benzodiazephine Screen, Urine NEGATIVE (NEGATIVE); Cannabinoid Screen, Urine NEGATIVE (NEGATIVE); Cocaine Screen, Urine NEGATIVE (NEGATIVE); Opiate Scree,Urine NEGATIVE (NEGATIVE); Phencyclidine Screen, Urine NEGATIVE (NEGATIVE)
[2021-01-08 07:00] LABS: Cholesterol 124 mg/dL (< 200); HDL Cholesterol 49 mg/dL (40-59); LDL Cholesterol 65 mg/dL (< 100); Triglycerides 106 mg/dL (< 150)
[2021-01-08 09:15] LABS: Potassium 3.7 mmol/L (3.5-5.1)
[2021-01-08 09:19] LABS: Magnesium 2.3 mg/dL (1.6-2.6)
[2021-01-08] MEDS ORDERED: NITROGLYCERIN 0.2MG/HR TOPICAL PATCH TD SCH (10:00)
[2021-01-08] MEDS ORDERED: SACUBITRIL-VALSARTAN 24mg/26mg TAB PO SCH (10:00)
[2021-01-08] MEDS ORDERED: ASPirin 81 mg TAB PO SCH (10:00)
[2021-01-08] MEDS: CARVEDILOL 3.125 MG TAB PO SCH ×2 (10:33→12:09)
[2021-01-08] MEDS: ENOXAPARIN SOD 80 MG/0.8ML SYRINGE SC SCH (10:34)
[2021-01-08 14:18] VITALS: BP 120/87
[2021-01-08] MEDS ORDERED: FURO40TA4 PO (15:28)
[2021-01-08] MEDS ORDERED: POTA-180 PO (15:28)
[2021-01-08] MEDS ORDERED: DIGO1TAB35 PO (15:28)
[2021-01-08] MEDS ORDERED: ATOR20TA50 PO (15:28)
[2021-01-08] MEDS ORDERED: SACU1TAB PO (15:28)
[2021-01-08] MEDS ORDERED: CAR3125T PO (15:28)
[2021-01-08] MEDS ORDERED: RIV20T PO (15:28)
[2021-01-09] MEDS ORDERED: DAPAGLIFLOZIN 5 MG TAB PO SCH (10:00)
[2021-01-09] MEDS ORDERED: ENOXAPARIN SOD 40 MG/0.4 ML SYRINGE SC SCH (10:00)
== END 2021-01-08 15:30 | disposition left against medical advice (07) | DRG 291 ==
LOC: ER 16:20 → TELE 18:17
PROVIDERS: ADMIT Internal Medicine; ATTEND Internal Medicine
DX: I11.0 Hypertensive heart disease with heart failure (principal); I50.23 Acute on chronic systolic (congestive) heart failure; I48.20 Chronic atrial fibrillation, unspecified; E78.5 Hyperlipidemia, unspecified; F17.210 Nicotine dependence, cigarettes, uncomplicated; F41.9 Anxiety disorder, unspecified; I27.20 Pulmonary hypertension, unspecified; R73.9 Hyperglycemia, unspecified; J44.9 Chronic obstructive pulmonary disease, unspecified; Z20.822 Contact with and (suspected) exposure to COVID-19; Z53.29 Procedure and treatment not carried out because of patient's decision for other reasons; Z80.0 Family history of malignant neoplasm of digestive organs; Z80.1 Family history of malignant neoplasm of trachea, bronchus and lung; Z80.3 Family history of malignant neoplasm of breast; Z80.42 Family history of malignant neoplasm of prostate; Z80.8 Family history of malignant neoplasm of other organs or systems; Z81.8 Family history of other mental and behavioral disorders; Z82.0 Family history of epilepsy and other diseases of the nervous system; Z82.3 Family history of stroke; Z82.49 Family history of ischemic heart disease and other diseases of the circulatory system; Z82.5 Family history of asthma and other chronic lower respiratory diseases; Z82.62 Family history of osteoporosis; Z83.3 Family history of diabetes mellitus; Z86.73 Personal history of transient ischemic attack (TIA), and cerebral infarction without residual deficits; Z91.19 Patient's noncompliance with other medical treatment and regimen; Z98.61 Coronary angioplasty status; Z95.810 Presence of automatic (implantable) cardiac defibrillator
CPT/HCPCS: 36415; 71045; 80053; 80061; 80162; 80307; 81001; 82550; 83036; 83605; 83690; 83735; 83880; 84132; 84443; 84484; 85025; 85379; 87426; 93005; 93306; 96365; 96375; G0378; J7060

== ENCOUNTER 2021-01-27 05:55 | Inpatient (IN) | payer OTHER ==
[~2021-01-27] VITALS: Ht 182.9 cm; Wt 86.0 kg
[~2021-01-27 05:55] MED LIST changes: +CAR3125T PO; -DILT-29 PO
[2021-01-27 06:55] LABS: Basophils # (auto) 0.1 10 ^3/uL (0-0.2); Basophils % (auto) 1.2 % (0.0-2.0); Eosinophils # (auto) 0.1 10 ^3/uL (0-0.8); Eosinophils % (auto) 2.7 % (0.0-7.0); Hematocrit 44.3 % (41.0-53.0); Hemoglobin 15.7 g/dL (13.5-17.5); Lymphocytes # (auto) 1.3 10 ^3/uL (0.4-5.4); Lymphocytes % (auto) 24.9 % (10.0-50.0); Mean Corpuscular Hgb Conc. 35.4 g/dL (32.0-36.0); Mean Corpuscular Volume 96.2 fL (80.0-100.0); Monocytes # (auto) 0.5 10 ^3/uL (0-1.3); Monocytes % (auto) 9.9 % (0.0-12.0); Neutrophils # (auto) 3.3 10 ^3/uL (1.6-8.6); Neutrophils % (auto) 61.3 % (37.0-80.0); Red Cell Distribution Width 13.5 % (11.8-14.3); White Blood Cell 5.4 10^3/uL (4.4-10.8)
[2021-01-27 07:06] LABS: INR 1.07 (0.9-1.15); Partial Thromboplastin Time 26.2 sec (23.6-33.0)
[2021-01-27 07:13] LABS: Potassium 3.8 mmol/L (3.5-5.1)
[2021-01-27 07:22] LABS: Albumin 3.5 g/dL (3.4-5.0); BUN/Creatinine Ratio 18.1; Bilirubin, Total 0.5 mg/dL (0.2-1.0); Calcium 8.5 mg/dL (8.5-10.1); Total Protein 6.3 g/dL (6.4-8.2)
[2021-01-27 07:37] LABS: Urine Bacteria NONE SEEN /hpf (None Seen); Urine Blood Negative /uL (Negative); Urine Specific Gravity 1.011 (1.001-1.035); Urine WBC <1 /hpf (0 - 3)
[2021-01-27] MEDS ORDERED: SODIUM CHLORIDE 0.9% 1,000 ML IV ONE (07:45)
[2021-01-27] MEDS ORDERED: SODIUM CHLORIDE 0.9% 1,000 ML IVB ONE (07:45)
[2021-01-27] MEDS ORDERED: ONDANSETRON HCL 4 MG/2 ML VIAL IV ONE (08:30)
[2021-01-27] MEDS ORDERED: MORPHINE SULFATE INJECTION 2 MG/ML SYRG IV ONE (08:30)
[2021-01-27] MEDS ORDERED: ASPirin 81 mg TAB PO ONE (09:15)
[2021-01-27] MEDS ORDERED: MECLIZINE HCL 25 MG TAB PO ONE (10:30)
[2021-01-27] MEDS ORDERED: ENOXAPARIN SOD 60 MG/0.6 ML SYRINGE SC ONE (10:30)
[2021-01-27] MEDS ORDERED: traMADol HCL 50 MG TAB PO PRN (11:00)
[2021-01-27] MEDS ORDERED: MORPHINE SULFATE INJECTION 2 MG/ML SYRG IV PRN (11:00)
[2021-01-27] MEDS ORDERED: NITROGLYCERIN 0.4 MG SL TAB SL PRN (11:00)
[2021-01-27] MEDS ORDERED: LACTULOSE 20Gm/30ML SOLN PO PRN (11:00)
[2021-01-27] MEDS ORDERED: ACETAMINOPHEN 500 MG TAB PO PRN (11:00)
[2021-01-27] MEDS ORDERED: PROMETHAZINE HCL 25 MG/ML 1ML IV PRN (11:00)
[2021-01-27] MEDS ORDERED: TEMAZEPAM 15 MG CAP PO PRN (11:00)
[2021-01-27] MEDS ORDERED: ALBUTEROL SULF 2.5 MG/0.5ML(0.5%) NEB SOLN NEB PRN (11:00)
[2021-01-27] MEDS: IPRATROPIUM BROM 0.5 MG/2.5ML INH SOL NEB SCH ×2 (12:00→18:57)
[2021-01-27] MEDS: ALBUTEROL SULF 2.5 MG/0.5ML(0.5%) NEB SOLN NEB SCH ×2 (12:00→18:58)
[2021-01-27] MEDS: BUDESONIDE (INHALATION) 0.5 MG/2 ML NEB NEB SCH ×2 (12:28→18:58)
[2021-01-27] MEDS: levoFLOXacin 500MG 100 ML IV SCH (13:07)
[2021-01-27] MEDS ORDERED: DIGOXIN (250MCG/ML) 2 ML AMPULE IV ONE (13:30)
[2021-01-27 13:33] VITALS: BP 121/85
[2021-01-27] MEDS: SODIUM CHLOR 0.9% PF (SALINE LOCK) 10ML VIAL/SYR IV SCH ×2 (13:41→22:18)
[2021-01-27] MEDS: MORPHINE SULFATE INJECTION 2 MG/ML SYRG IV PRN ×2 (16:29→20:47)
[2021-01-27] MEDS ORDERED: RIVAROXABAN 20 MG TAB PO SCH (18:00)
[2021-01-27 20:58] VITALS: BP 125/83
[2021-01-27 21:16] VITALS: BP 125/83
[2021-01-27 22:00] VITALS: BP 125/83
[2021-01-27] MEDS: CARVEDILOL 3.125 MG TAB PO SCH (22:00)
[2021-01-27] MEDS ORDERED: BUDESONIDE (INHALATION) 180 MCG IH IN SCH (22:00)
[2021-01-27] MEDS: AMIODARONE HCL 200 MG TAB PO SCH (22:18)
[2021-01-27] MEDS: SACUBITRIL-VALSARTAN 24mg/26mg TAB PO SCH (22:19)
[2021-01-27] MEDS: ATORVASTATIN 20 MG TAB PO SCH (22:19)
[2021-01-28] MEDS: IPRATROPIUM BROM 0.5 MG/2.5ML INH SOL NEB SCH ×5 (00:24→18:36)
[2021-01-28] MEDS: ALBUTEROL SULF 2.5 MG/0.5ML(0.5%) NEB SOLN NEB SCH ×5 (00:25→18:36)
[2021-01-28] MEDS: MORPHINE SULFATE INJECTION 2 MG/ML SYRG IV PRN ×4 (04:00→23:14)
[2021-01-28] MEDS: MECLIZINE HCL 25 MG TAB PO PRN ×2 (04:48→23:48)
[2021-01-28 05:00] VITALS: BP 114/76
[2021-01-28] MEDS: BUDESONIDE (INHALATION) 0.5 MG/2 ML NEB NEB SCH ×2 (06:13→18:36)
[2021-01-28] MEDS: SODIUM CHLOR 0.9% PF (SALINE LOCK) 10ML VIAL/SYR IV SCH ×3 (06:18→22:00)
[2021-01-28 06:48] LABS: Basophils # (auto) 0.1 10 ^3/uL (0-0.2); Eosinophils # (auto) 0.2 10 ^3/uL (0-0.8); Eosinophils % (auto) 3.1 % (0.0-7.0); Hematocrit 44.9 % (41.0-53.0); Hemoglobin 15.7 g/dL (13.5-17.5); Lymphocytes # (auto) 1.8 10 ^3/uL (0.4-5.4); Lymphocytes % (auto) 33.4 % (10.0-50.0); Mean Corpuscular Hemoglobin 33.9 pg (28.0-32.0); Mean Corpuscular Hgb Conc. 34.9 g/dL (32.0-36.0); Mean Corpuscular Volume 97.1 fL (80.0-100.0); Monocytes # (auto) 0.5 10 ^3/uL (0-1.3); Monocytes % (auto) 8.5 % (0.0-12.0); Nucleated Red Blood Cells % 0.2 %; Red Blood Cells 4.62 10^6/uL (4.5-5.90); Red Cell Distribution Width 13.5 % (11.8-14.3); White Blood Cell 5.5 10^3/uL (4.4-10.8)
[2021-01-28 07:18] LABS: Potassium 3.9 mmol/L (3.5-5.1)
[2021-01-28 07:24] LABS: Albumin 3.1 g/dL (3.4-5.0); BUN/Creatinine Ratio 18.6; Bilirubin, Total 0.7 mg/dL (0.2-1.0); Calcium 8.3 mg/dL (8.5-10.1); Total Protein 6.2 g/dL (6.4-8.2)
[2021-01-28 09:00] VITALS: BP 121/59
[2021-01-28] MEDS: NITROGLYCERIN 0.2MG/HR TOPICAL PATCH TD SCH (09:44)
[2021-01-28] MEDS: SACUBITRIL-VALSARTAN 24mg/26mg TAB PO SCH ×2 (09:47→23:00)
[2021-01-28] MEDS: CARVEDILOL 3.125 MG TAB PO SCH ×2 (09:47→22:00)
[2021-01-28] MEDS: dilTIAZem HCL 180MG ER CAP PO SCH (09:48)
[2021-01-28] MEDS: AMIODARONE HCL 200 MG TAB PO SCH ×2 (09:49→14:25)
[2021-01-28] MEDS: levoFLOXacin 500MG 100 ML IV SCH (09:58)
[2021-01-28] MEDS: FUROSEMIDE 40 MG/4 ML VIAL IV SCH (09:58)
[2021-01-28] MEDS: ASCORBIC ACID 1,000 MG TAB PO SCH (09:59)
[2021-01-28] MEDS: POTASSIUM CHL 20 Meq TABLET PO SCH (09:59)
[2021-01-28] MEDS: DIGOXIN 0.125 MG TAB PO SCH (09:59)
[2021-01-28] MEDS: CHOLECALCIFEROL (VITD3) 2,000 UNIT CAP/TAB PO SCH (10:00)
[2021-01-28] MEDS: ASPirin 81 mg TAB PO SCH (10:12)
[2021-01-28 13:01] VITALS: BP 114/69
[2021-01-28 17:01] VITALS: BP 118/61
[2021-01-28] MEDS ORDERED: RIVAROXABAN 20 MG TAB PO SCH (18:00)
[2021-01-28 22:00] VITALS: BP 132/86
[2021-01-28] MEDS: ATORVASTATIN 20 MG TAB PO SCH (23:00)
[2021-01-29] VITALS (7 sets, daily range): BP systolic 108–134; BP diastolic 59–93
[2021-01-29] MEDS: ALBUTEROL SULF 2.5 MG/0.5ML(0.5%) NEB SOLN NEB SCH ×5 (00:16→19:01)
[2021-01-29] MEDS: IPRATROPIUM BROM 0.5 MG/2.5ML INH SOL NEB SCH ×5 (00:16→19:01)
[2021-01-29] MEDS: MORPHINE SULFATE INJECTION 2 MG/ML SYRG IV PRN ×4 (04:34→21:49)
[2021-01-29] MEDS: SODIUM CHLOR 0.9% PF (SALINE LOCK) 10ML VIAL/SYR IV SCH ×3 (06:00→21:46)
[2021-01-29] MEDS: BUDESONIDE (INHALATION) 0.5 MG/2 ML NEB NEB SCH ×2 (07:46→19:00)
[2021-01-29] MEDS: POTASSIUM CHL 20 Meq TABLET PO SCH (10:29)
[2021-01-29] MEDS: FUROSEMIDE 40 MG/4 ML VIAL IV SCH (10:29)
[2021-01-29] MEDS: ASCORBIC ACID 1,000 MG TAB PO SCH (10:29)
[2021-01-29] MEDS: SACUBITRIL-VALSARTAN 24mg/26mg TAB PO SCH (10:30)
[2021-01-29] MEDS: AMIODARONE HCL 200 MG TAB PO SCH ×2 (10:30→21:46)
[2021-01-29] MEDS: ASPirin 81 mg TAB PO SCH (10:31)
[2021-01-29] MEDS: CHOLECALCIFEROL (VITD3) 2,000 UNIT CAP/TAB PO SCH (10:31)
[2021-01-29] MEDS: levoFLOXacin 500MG 100 ML IV SCH (10:32)
[2021-01-29] MEDS: CARVEDILOL 3.125 MG TAB PO SCH ×2 (10:40→21:47)
[2021-01-29] MEDS: NITROGLYCERIN 0.2MG/HR TOPICAL PATCH TD SCH (10:40)
[2021-01-29] MEDS: DIGOXIN 0.125 MG TAB PO SCH (10:53)
[2021-01-29] MEDS: dilTIAZem HCL 180MG ER CAP PO SCH (10:54)
[2021-01-29 12:15] LABS: Eosinophils # (auto) 0.2 10 ^3/uL (0-0.8); Hemoglobin 17.9 g/dL (13.5-17.5); Monocytes # (auto) 0.7 10 ^3/uL (0-1.3); Red Cell Distribution Width 13.2 % (11.8-14.3)
[2021-01-29 12:18] LABS: Basophils # (auto) 0 10 ^3/uL (0-0.2); Basophils % (auto) 0.6 % (0.0-2.0); Eosinophils % (auto) 2.4 % (0.0-7.0); Hematocrit 51.8 % (41.0-53.0); Lymphocytes # (auto) 1.8 10 ^3/uL (0.4-5.4); Lymphocytes % (auto) 23.6 % (10.0-50.0); Mean Corpuscular Hemoglobin 33.4 pg (28.0-32.0); Mean Corpuscular Hgb Conc. 34.6 g/dL (32.0-36.0); Mean Corpuscular Volume 96.7 fL (80.0-100.0); Monocytes % (auto) 9.4 % (0.0-12.0); Neutrophils # (auto) 4.9 10 ^3/uL (1.6-8.6); Nucleated Red Blood Cells % 0.1 %; Red Blood Cells 5.36 10^6/uL (4.5-5.90); White Blood Cell 7.6 10^3/uL (4.4-10.8)
[2021-01-29 12:30] LABS: INR 1.14 (0.9-1.15)
[2021-01-29] MEDS ORDERED: WARFARIN SODIUM 2.5 MG TAB PO ONE (17:00)
[2021-01-29] MEDS ORDERED: RIVAROXABAN 20 MG TAB PO SCH (18:00)
[2021-01-29] MEDS: ATORVASTATIN 20 MG TAB PO SCH (21:48)
[2021-01-30] MEDS: MORPHINE SULFATE INJECTION 2 MG/ML SYRG IV PRN (03:16)
[2021-01-30 05:00] VITALS: BP 94/68
[2021-01-30] MEDS: SODIUM CHLOR 0.9% PF (SALINE LOCK) 10ML VIAL/SYR IV SCH (06:20)
[2021-01-30 06:29] LABS: Basophils # (auto) 0.1 10 ^3/uL (0-0.2); Basophils % (auto) 1.3 % (0.0-2.0); Eosinophils # (auto) 0.3 10 ^3/uL (0-0.8); Eosinophils % (auto) 4.1 % (0.0-7.0); Hematocrit 49.3 % (41.0-53.0); Hemoglobin 17.2 g/dL (13.5-17.5); Lymphocytes # (auto) 1.7 10 ^3/uL (0.4-5.4); Lymphocytes % (auto) 25.4 % (10.0-50.0); Mean Corpuscular Hemoglobin 33.5 pg (28.0-32.0); Mean Corpuscular Hgb Conc. 34.9 g/dL (32.0-36.0); Mean Corpuscular Volume 96.1 fL (80.0-100.0); Monocytes # (auto) 0.7 10 ^3/uL (0-1.3); Monocytes % (auto) 10.7 % (0.0-12.0); Neutrophils # (auto) 3.9 10 ^3/uL (1.6-8.6); Neutrophils % (auto) 58.5 % (37.0-80.0); Nucleated Red Blood Cells % 0.1 %; Red Blood Cells 5.13 10^6/uL (4.5-5.90); Red Cell Distribution Width 13.5 % (11.8-14.3); White Blood Cell 6.7 10^3/uL (4.4-10.8)
[2021-01-30 06:36] LABS: INR 1.1 (0.9-1.15)
[2021-01-30] MEDS: IPRATROPIUM BROM 0.5 MG/2.5ML INH SOL NEB SCH ×2 (06:54→12:00)
[2021-01-30] MEDS: ALBUTEROL SULF 2.5 MG/0.5ML(0.5%) NEB SOLN NEB SCH ×2 (06:54→12:00)
[2021-01-30 08:05] VITALS: BP 114/75
[2021-01-30 09:00] VITALS: BP 114/75
[2021-01-30] MEDS ORDERED: ATOR20TA50 PO (09:07)
[2021-01-30] MEDS ORDERED: DILT-40 PO (09:07)
[2021-01-30] MEDS ORDERED: FURO40TA4 PO (09:07)
[2021-01-30] MEDS ORDERED: CAR3125T PO (09:07)
[2021-01-30] MEDS ORDERED: WARF5TAB71 PO (09:07)
[2021-01-30] MEDS ORDERED: DIGO1TAB35 PO (09:07)
[2021-01-30] MEDS ORDERED: LOSA25TA38 PO (09:07)
[2021-01-30] MEDS ORDERED: ASPI1CHW15 PO (09:07)
[2021-01-30 09:50] VITALS: BP 114/75
[2021-01-30] MEDS: FUROSEMIDE 40 MG/4 ML VIAL IV SCH (10:53)
[2021-01-30] MEDS: POTASSIUM CHL 20 Meq TABLET PO SCH (10:54)
[2021-01-30] MEDS: ASCORBIC ACID 1,000 MG TAB PO SCH (10:54)
[2021-01-30] MEDS: CHOLECALCIFEROL (VITD3) 2,000 UNIT CAP/TAB PO SCH (10:54)
[2021-01-30] MEDS: AMIODARONE HCL 200 MG TAB PO SCH (10:54)
[2021-01-30] MEDS: NITROGLYCERIN 0.2MG/HR TOPICAL PATCH TD SCH (10:55)
[2021-01-30] MEDS: ASPirin 81 mg TAB PO SCH (10:55)
[2021-01-30] MEDS: DIGOXIN 0.125 MG TAB PO SCH (10:55)
[2021-01-30] MEDS: CARVEDILOL 3.125 MG TAB PO SCH (10:55)
[2021-01-30] MEDS: dilTIAZem HCL 180MG ER CAP PO SCH (11:02)
[2021-01-30] MEDS: BUDESONIDE (INHALATION) 0.5 MG/2 ML NEB NEB SCH (12:21)
== END 2021-01-30 11:15 | disposition home health service (06) | DRG 196 ==
LOC: EDBD 05:55 → ER 05:55 → TELE 10:49 → TELE-CENTR 20:19
PROVIDERS: ADMIT Internal Medicine; ATTEND Internal Medicine
DX: J84.9 Interstitial pulmonary disease, unspecified (principal); I50.23 Acute on chronic systolic (congestive) heart failure; I48.20 Chronic atrial fibrillation, unspecified; I13.0 Hypertensive heart and chronic kidney disease with heart failure and stage 1 through stage 4 chronic kidney disease, or unspecified chronic kidney disease; I25.110 Atherosclerotic heart disease of native coronary artery with unstable angina pectoris; J44.0 Chronic obstructive pulmonary disease with (acute) lower respiratory infection; R09.89 Other specified symptoms and signs involving the circulatory and respiratory systems; N18.9 Chronic kidney disease, unspecified; F41.9 Anxiety disorder, unspecified; E78.00 Pure hypercholesterolemia, unspecified; E78.5 Hyperlipidemia, unspecified; F17.210 Nicotine dependence, cigarettes, uncomplicated; R55 Syncope and collapse; G40.909 Epilepsy, unspecified, not intractable, without status epilepticus; Z20.822 Contact with and (suspected) exposure to COVID-19; Z79.82 Long term (current) use of aspirin; Z79.899 Other long term (current) drug therapy; Z80.0 Family history of malignant neoplasm of digestive organs; Z80.1 Family history of malignant neoplasm of trachea, bronchus and lung; Z91.19 Patient's noncompliance with other medical treatment and regimen; Z95.0 Presence of cardiac pacemaker; Z80.3 Family history of malignant neoplasm of breast; Z80.42 Family history of malignant neoplasm of prostate; Z80.8 Family history of malignant neoplasm of other organs or systems; Z81.8 Family history of other mental and behavioral disorders; Z82.0 Family history of epilepsy and other diseases of the nervous system; Z82.3 Family history of stroke; Z82.49 Family history of ischemic heart disease and other diseases of the circulatory system; Z82.5 Family history of asthma and other chronic lower respiratory diseases; Z82.62 Family history of osteoporosis; Z83.3 Family history of diabetes mellitus; Z91.14 Patient's other noncompliance with medication regimen; Z86.73 Personal history of transient ischemic attack (TIA), and cerebral infarction without residual deficits; Z71.6 Tobacco abuse counseling
CPT/HCPCS: 36415; 70450; 71045; 80053; 80162; 81001; 82550; 83735; 83880; 84443; 84484; 85025; 85379; 85610; 85730; 86141; 87070; 87205; 87426; 93005; 93886; 94640; 95819; 96361; 96372; 96374; 96375; G0378; J1956; J2405

== ENCOUNTER 2024-07-25 04:02 | Emergency (ER) | payer OTHER ==
[~2024-07-25] VITALS: Ht 182.9 cm; Wt 91.7 kg
[~2024-07-25 04:02] MED LIST changes: +ASPI-736 PO; -CAR3125T PO; +CARV-214 PO; -FLUT1INH6 IN; +LOSA-533 PO; -RIV20T PO; -SACU1TAB PO; +WARF-66 PO
[2024-07-25 04:16] VITALS: BP 146/88; RESP 17; TEMP 97.9; O2SAT 96
[2024-07-25] MEDS ORDERED: MORPHINE SULFATE 4 MG/ML SYR/VIAL IV ONE (04:30)
[2024-07-25] MEDS ORDERED: ONDANSETRON HCL 4 MG/2 ML VIAL IV ONE (04:30)
--- NOTE | 2024-07-25 05:10 | DVH ---
CHEST RADIOGRAPH Indication: chest pain Technique: Single frontal view of the chest was obtained COMPARISON: CHEST PORTABLE on DOS: 01/28/21, CHEST PORTABLE on DOS: 01/27/21, CHEST PORTABLE on DOS: 01/07/21 FINDINGS: Lines and Tubes: Left anterior chest wall dual lead cardiac pacing device. Lungs: Clear Pleura: No effusion. No pneumothorax. Cardiomediastinal contours: Unremarkable Bones: Unremarkable IMPRESSION: 1. No acute disease.
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
[2024-07-25 05:36] VITALS: PULSE 110
--- NOTE | 2024-07-25 09:14 | ECG ---
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
--- NOTE | 2024-07-26 11:58 | ECG ---
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
== END 2024-07-25 06:03 | disposition left against medical advice (07) ==
LOC: ER 04:02
DX: I24.9 Acute ischemic heart disease, unspecified (principal); I11.0 Hypertensive heart disease with heart failure; I50.9 Heart failure, unspecified; F17.210 Nicotine dependence, cigarettes, uncomplicated; E78.5 Hyperlipidemia, unspecified; I48.91 Unspecified atrial fibrillation; Z79.82 Long term (current) use of aspirin; Z79.899 Other long term (current) drug therapy; Z95.0 Presence of cardiac pacemaker; V43.52XA Car driver injured in collision with other type car in traffic accident, initial encounter; Y93.I9 Activity, other involving external motion; Y92.488 Other paved roadways as the place of occurrence of the external cause; Y99.8 Other external cause status
CPT/HCPCS: 71045; 93005